=== PATIENT | female | born 1965 | race Caucasian/White ===

== ENCOUNTER → 2017-04-26 | Outpatient (CLI) | payer OTHER ==
[~2017-04-26] MED LIST: AMARYL2 MG PO; CLONAZEPAM 0.50.5 M1 PO; DEXTROAMP-AMPHE30 MG PO; HYDROCODONE-AP1 EA11 PO; HYDROCODONE-AP1 EAC6 PO; LEXAPRO20 MG PO; METFORMIN HCL500 MG PO; METOPROLOL SUCC50 MG PO; MOBIC15 MG PO; PERCOCET 10-321 EACH PO; QUETIAPINE FUM100 MG PO; VENLAFAXINE HCL75 MG PO; ZANAFLEX4 MG PO
== END ==
LOC: RAD 12:29
DX: M47.892 Other spondylosis, cervical region (principal); M19.012 Primary osteoarthritis, left shoulder

== ENCOUNTER → 2018-01-13 | Outpatient (CLI) | payer OTHER | LOC: CAT 11:24 | DX: K76.0 Fatty (change of) liver, not elsewhere classified (principal); R31.9 Hematuria, unspecified ==

== ENCOUNTER 2020-07-06 17:00 | Emergency (ER) | payer OTHER ==
[~2020-07-06] VITALS: Ht 167.6 cm; Wt 88.5 kg
[2020-07-06 17:35] LABS: ABSOLUTE NEUTROPHILS 5.5 thou/uL (1.4-8.2); BASOPHILS 0.8 % (0.0-2.0); EOSINOPHILS 1.2 % (0.0-3.0); HEMATOCRIT 46.1 % (37.0-47.0); HEMOGLOBIN 15.4 gm/dL (12.0-15.0); LYMPHOCYTES 17.8 % (24.0-44.0); MCH 29.2 pg (26.0-34.0); MCHC 33.4 g/dL (28.0-37.0); MCV 87.2 fL (80.0-100.0); MONOCYTES 3.7 % (1.0-8.0); PLATELET COUNT 234 thou/uL (150-400); POLYS 76.5 % (36.0-66.0); RBC 5.28 mil/uL (4.20-5.00); RDW 14.1 % (10.5-14.5); WBC 7.2 thou/uL (4.0-11.0)
[2020-07-06 17:42] LABS: ANION GAP 12 mmol/L (7-16); BUN 14 mg/dL (7-18); CALCIUM 9.6 mg/dL (8.5-10.1); CHLORIDE 102 mmol/L (98-107); CO2 27 mmol/L (21-32); CREATININE 0.9 mg/dL (0.6-1.0); GLUCOSE 176 mg/dL (74-106); POTASSIUM 4.1 mmol/L (3.5-5.1); SODIUM 141 mmol/L (136-145)
[2020-07-06 17:52] LABS: ALBUMIN 3.8 g/dL (3.4-5.0); LIPASE 110 U/L (73-393); SGOT 56 U/L (15-37); SGPT 70 U/L (30-65); TOTAL BILIRUBIN 0.8 mg/dL (0.2-1.0); TOTAL PROTEIN 8.9 g/dL (6.4-8.2); TROPONIN-I <0.06 ng/mL (<0.06)
[2020-07-06 19:26] LABS: URINE BILIRUBIN NEGATIVE (Negative); URINE BLOOD NEGATIVE (Negative); URINE CLARITY CLEAR; URINE COLOR YELLOW; URINE GLUCOSE-RANDOM* 3+ (Negative); URINE KETONES 2+ (Negative); URINE LEUKOCYTES-REFLEX NEGATIVE (Negative); URINE NITRITE-REFLEX NEGATIVE (Negative); URINE PROTEIN (DIPSTICK) 1+ (Negative); URINE UROBILINOGEN 0.2 E.U./dl (0.2-1.0)
[2020-07-06] MEDS ORDERED: COZAAR 25 MG TA25 M1 PO (19:31)
[2020-07-06] MEDS ORDERED: HYDROCHLOROTHIA25 M2 PO (19:31)
[2020-07-06 19:43] LABS: BACTERIA-REFLEX 1-9 Few /HPF (None Seen); CASTS None Seen /LPF (None Seen); CRYSTALS None Seen /LPF (None Seen); SQUAMOUS 0-3 Few /LPF (0-3); URINE RBC None Seen /HPF (0-2); URINE WBC-REFLEX None Seen /HPF (0-5)
[2020-07-06] MEDS ORDERED: COMPAZINE10 MG PO (20:32)
[2020-07-06 20:40] VITALS: BP 134/60
--- NOTE | 2020-07-07 08:34 | EKG ---
[facility] [place] [address] ELECTROCARDIOGRAM REPORT Name: FERMIN WOLF [id number] Admission: 07/06/20 Attend Phys: Discharge: 07/06/20 Date of : 63 Report #: [id number] THIS REPORT FOR: cc: Audi Narayanan Neal A. 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[facility] : 1965 Requested By: Swathi Arnold Order Number: [id number] MD: Gregorio Wilson Measurements Intervals [place] Rate: 102 P: 41 [place]: 185 QRS: -3 QRSD: 80 T: 27 QT: 336 QTc: 438 Interpretive Statements Sinus tachycardia Probable anteroseptal infarct, old No previous ECG available for comparison Electronically Signed On 07-07-2020 8:34:18 CDT by Gregorio Wilson [email or web address] <ELECTRONICALLY SIGNED> By: Gregorio Wilson MD, FAC 07/07/20 0834 [id number] Gregorio Wilson MD, [facility] /EPI
== END 2020-07-06 21:52 | disposition home or self-care (01) ==
LOC: ER 17:00
PROVIDERS: Physician Assistant
DX: E86.0 Dehydration (principal); I10 Essential (primary) hypertension; E11.9 Type 2 diabetes mellitus without complications; Z87.891 Personal history of nicotine dependence; Z79.899 Other long term (current) drug therapy; Z88.0 Allergy status to penicillin; Z88.1 Allergy status to other antibiotic agents

== ENCOUNTER → 2020-07-13 | Outpatient (CLI) | payer OTHER ==
[~2020-07-13] MED LIST changes: +COMPAZINE10 MG PO; +COZAAR 25 MG TA25 M1 PO; +HYDROCHLOROTHIA25 M2 PO
== END ==
LOC: LAB 11:34
PROVIDERS: ATTEND Nurse Practitioner
DX: Z20.828 Contact with and (suspected) exposure to other viral communicable diseases (principal)

== ENCOUNTER 2021-02-10 15:04 | Emergency (ER) | payer OTHER ==
[~2021-02-10] VITALS: Ht 167.6 cm; Wt 88.5 kg
[2021-02-10] MEDS ORDERED: WELLBUTRIN SR150 M1 PO (15:38)
[2021-02-10 17:17] LABS: ABSOLUTE NEUTROPHILS 7.1 thou/uL (1.4-8.2); BASOPHILS 0.4 % (0.0-2.0); EOSINOPHILS 0.6 % (0.0-3.0); HEMATOCRIT 44.7 % (37.0-47.0); HEMOGLOBIN 14.7 gm/dL (12.0-15.0); LYMPHOCYTES 12.2 % (24.0-44.0); MONOCYTES 2.4 % (1.0-8.0); PLATELET COUNT 223 thou/uL (150-400); POLYS 84.4 % (36.0-66.0); RBC 5.08 mil/uL (4.20-5.00); RDW 14.9 % (10.5-14.5); WBC 8.5 thou/uL (4.0-11.0)
[2021-02-10 17:25] LABS: CALCIUM 9.8 mg/dL (8.5-10.1); CREATININE 0.8 mg/dL (0.6-1.0); POTASSIUM 4.1 mmol/L (3.5-5.1)
[2021-02-10 17:35] LABS: ALBUMIN 3.9 g/dL (3.4-5.0); TOTAL BILIRUBIN 0.9 mg/dL (0.2-1.0)
[2021-02-10 17:35] LABS: URINE BILIRUBIN NEGATIVE (Negative); URINE BLOOD NEGATIVE (Negative); URINE CLARITY CLEAR; URINE COLOR YELLOW; URINE GLUCOSE-RANDOM* 3+ (Negative); URINE KETONES 3+ (Negative); URINE LEUKOCYTES-REFLEX NEGATIVE (Negative); URINE NITRITE-REFLEX NEGATIVE (Negative); URINE PROTEIN (DIPSTICK) 1+ (Negative); URINE SPECIFIC GRAVITY 1.025 (1.005-1.035); URINE UROBILINOGEN 0.2 E.U./dl (0.2-1.0)
[2021-02-10 19:08] LABS: CASTS None Seen /LPF (None Seen); CRYSTALS None Seen /LPF (None Seen); SQUAMOUS >10 Many /LPF (0-3); URINE RBC None Seen /HPF (NONE SEEN); URINE WBC-REFLEX 0-5 Rare /HPF (0-5)
[2021-02-10 19:11] LABS: BACTERIA-REFLEX None Seen /HPF (None Seen)
[2021-02-10] MEDS ORDERED: PROMS25 WY RECTAL (20:15)
[2021-02-10] MEDS ORDERED: PHENERGAN 25 MG25 M1 PO (20:15)
[2021-02-10 20:20] VITALS: BP 140/78
--- NOTE | 2021-02-11 12:29 | EKG ---
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 : 1965 Requested By: Michelet Alvarez Order Number: [id number] MD: Gregorio Wilson Measurements Intervals [place] Rate: 111 P: 61 [place]: 170 QRS: -17 QRSD: 76 T: 43 QT: 327 QTc: 445 Interpretive Statements Sinus tachycardia Anterior infarct, old Compared to ECG 07/06/2020 17:45:19 No significant changes Electronically Signed On 02-11-2021 12:29:06 CDT by Gregorio Wilson [email or web address] <ELECTRONICALLY SIGNED> By: Gregorio Wilson MD, [facility] WITH [facility] 02/11/21 1229 1515 1515 Gregorio Wilson MD, FACC /EPI
--- NOTE | 2021-02-11 12:32 | EKG ---
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
== END 2021-02-10 20:21 | disposition home or self-care (01) ==
LOC: ER 15:04
PROVIDERS: Physician Assistant
DX: R11.2 Nausea with vomiting, unspecified (principal); T38.3X5A Adverse effect of insulin and oral hypoglycemic [antidiabetic] drugs, initial encounter; I10 Essential (primary) hypertension; E11.9 Type 2 diabetes mellitus without complications; Z87.891 Personal history of nicotine dependence; Z88.1 Allergy status to other antibiotic agents; Z88.0 Allergy status to penicillin; Z79.899 Other long term (current) drug therapy; Y92.89 Other specified places as the place of occurrence of the external cause

== ENCOUNTER → 2021-02-22 | Outpatient (CLI) | payer OTHER ==
[~2021-02-22] MED LIST changes: +PHENERGAN 25 MG25 M1 PO; +PROMS25 WY RECTAL; +WELLBUTRIN SR150 M1 PO
== END ==
LOC: HYPER 02-20 07:51
PROVIDERS: ATTEND Emergency Medicine
DX: E11.622 Type 2 diabetes mellitus with other skin ulcer (principal); L97.812 Non-pressure chronic ulcer of other part of right lower leg with fat layer exposed; S81.811A Laceration without foreign body, right lower leg, initial encounter; E11.40 Type 2 diabetes mellitus with diabetic neuropathy, unspecified; E66.9 Obesity, unspecified; G89.29 Other chronic pain; M19.90 Unspecified osteoarthritis, unspecified site; F32.9 Major depressive disorder, single episode, unspecified; Z87.891 Personal history of nicotine dependence; Z79.84 Long term (current) use of oral hypoglycemic drugs; Z79.899 Other long term (current) drug therapy; Z68.31 Body mass index [BMI] 31.0-31.9, adult; X58.XXXA Exposure to other specified factors, initial encounter; Y93.89 Activity, other specified; Y92.89 Other specified places as the place of occurrence of the external cause; Y99.8 Other external cause status

== ENCOUNTER → 2021-03-02 | Outpatient (CLI) | payer OTHER | LOC: HYPER 09:16 | PROVIDERS: ATTEND Emergency Medicine | DX: E11.622 Type 2 diabetes mellitus with other skin ulcer (principal); L97.812 Non-pressure chronic ulcer of other part of right lower leg with fat layer exposed; S81.811D Laceration without foreign body, right lower leg, subsequent encounter; E11.40 Type 2 diabetes mellitus with diabetic neuropathy, unspecified; E66.9 Obesity, unspecified; G89.29 Other chronic pain; M19.90 Unspecified osteoarthritis, unspecified site; F32.9 Major depressive disorder, single episode, unspecified; F41.9 Anxiety disorder, unspecified; Z87.891 Personal history of nicotine dependence; Z79.84 Long term (current) use of oral hypoglycemic drugs; Z68.31 Body mass index [BMI] 31.0-31.9, adult; X58.XXXD Exposure to other specified factors, subsequent encounter ==